=== PATIENT | male | born 1985 | race Caucasian/White ===

== ENCOUNTER 2022-03-06 11:12 | Emergency (ER) | payer MEDICAID, SELFPAY ==
[2022-03-06 11:21] VITALS: BP 130/85; PULSE 74; RESP 16; TEMP 37; O2SAT 100; BMI 37.5
--- NOTE | 2022-03-06 11:23 | XR_ITS ---
PROCEDURE INFORMATION: Exam: XR Left Wrist Exam date and time: 03/06/2022 11:38 AM Age: 36 years old Clinical indication: Pain; Wrist; Left; Additional info: Pain in the wrist TECHNIQUE: Imaging protocol: XR Left wrist. Views: 3 or more views. COMPARISON: No relevant prior studies available. FINDINGS: Bones/joints: Distal radial ulnar joint is normal. Carpus without fracture and normal anatomic configuration. Metacarpals and visualized phalanges without fracture or dislocation. No periarticular erosive changes and/or soft tissue calcifications. Soft tissues: See Bones/joints finding. IMPRESSION: No acute process.
--- NOTE | 2022-03-06 11:27 | XR_ITS ---
PROCEDURE INFORMATION: Exam: XR Left Hand Exam date and time: 03/06/2022 11:38 AM Age: 36 years old Clinical indication: Pain; Lower or forearm and hand and shoulder; Left; Additional info: Pain/ no injury TECHNIQUE: Imaging protocol: XR Left hand. Views: 3 or more views. COMPARISON: No relevant prior studies available. FINDINGS: Bones/joints: osseous structures of the hand are without an acute process. Distal radioulnar joint and radiocarpal joints grossly normal. Carpus without fracture. Metacarpals and phalangeal without fracture or dislocation. No erosive changes or periarticular calcifications. Correlate regarding tenderness about the scaphoid. If tender consider additional view. No history of trauma however. Soft tissues: Normal. IMPRESSION: Correlate regarding tenderness about the scaphoid. If tender consider additional view. No history of trauma however.
--- NOTE | 2022-03-06 11:27 | XR_ITS ---
PROCEDURE INFORMATION: Exam: XR Left Forearm Exam date and time: 03/06/2022 11:38 AM Age: 36 years old Clinical indication: Pain; Lower or forearm; Left; Additional info: Pain/ no injury TECHNIQUE: Imaging protocol: XR Left forearm. Views: 2 views. COMPARISON: No relevant prior studies available. FINDINGS: Bones/joints: The osseous structures of the forearm are unremarkable. The distal radius and the distal ulna are unremarkable. Visualized portions of the carpus normal. The distal radial ulnar joint normal. Visualized portions of the elbow normal. Soft tissues: Normal. IMPRESSION: Normal forearm. No fracture. No foreign body.
--- NOTE | 2022-03-06 11:27 | XR_ITS ---
PROCEDURE INFORMATION: Exam: XR Left Shoulder Exam date and time: 03/06/2022 11:28 AM Age: 36 years old Clinical indication: Pain; Lower or forearm and hand and shoulder; Left; Additional info: Pain/ no injury TECHNIQUE: Imaging protocol: XR Left shoulder. Views: 2 or more views. COMPARISON: No relevant prior studies available. FINDINGS: Bones/joints: Osseous structures of the shoulder are grossly normal. Acromioclavicular joint is without dislocation or fracture. Subacromial space height is normal. Adjacent ribs are normal. Glenohumeral joint, clavicle, acromion, and coracoid process appear grossly normal. Soft tissues: Normal. IMPRESSION: Normal shoulder.
--- NOTE | 2022-03-06 12:19 | HMH.EDUTC ---
[facility] [place] Clinical Impression: Radicular pain in left arm Disposition: Home, Self-Care Condition on Discharge: Good Instructions: DI for Cervical Radiculopathy, DI for Arm Pain Additional Instructions: Rest the extremity, Elevate the extremity as tolerated while you are resting. Take the ibuprofen for pain. finish the steroids that were presribed at [place]. Don't take the ibuprofen and the naproxen together. Follow up with Dr. Serrano (orthopedics). I put in a referral but you need to call his office and schedule an appointment. Follow up with your regular doctor. GO TO THE ER FOR ANY WORSENING SYMPTOMS Prescriptions: Ibuprofen [Ibuprofen 800mg Tablet] 800 mg PO Q8HP PRN #30 tab PRN Reason: Moderate Pain Transmission Status: Pending to [id number] Referrals: Bridget Galindo MD [Primary Care Provider] - Richie Serrano MD [Staff Physician] - Forms: Work/School Release Time of Disposition: 13:12 Medical Decision Making - Medical Records Medical records reviewed: No: I reviewed the patient's medical records. - Ricardo Inquiry Pt receiving controlled substance: No Vital Signs: 03/06/22 11:21 Temperature 98.6 F Temperature Source Oral Pulse Rate [Right] 74 Respiratory Rate 16 Blood Pressure [Right Arm] 130/85 Blood Pressure Mean [Right Arm] 100 Blood Pressure Source [Right Arm] Automatic Cuff Blood Pressure Position [Right Arm] Sitting 02 Sat by Pulse Oximetry 100 Oxygen Delivery Method Room Air [facility] [place] - General Stated complaint: AO lt wrist pain 03/04 Time Seen by Provider: 03/06/22 11:45 Mode of Arrival: Ambulatory Source of Information: Patient Limitations: No Limitations Description of Symptoms (Recalled from Triage Doc. by RN): pt c/o pain in his left wrist that goes up into his forearm and sometimes into his shoulder. Advises his pinky and ring finger will sometimes tingle and go numb. Pt advises he uses that hand/arm repeatedly at work and it started bothering him on Monday afternoon - History of Present Illness Provider Complaint: He states that for the past 4 days he has had right shoulder, arm, elbow, wrist and hand pain. He denies any known injury, but his symptoms did start after he had to use his right hand and arm a lot to fix something. - Related Data Previous Rx's Medication Instructions Recorded Ibuprofen [Ibuprofen 800mg 800 mg PO Q8HP PRN #30 tab 03/06/22 Tablet] Allergies Allergy/AdvReac Type Severity Reaction Status Date / Time No Known Allergies Allergy Verified 11/09/20 12:58 [facility] History - Hepatitis A Screen Attestation statement:: This patient has been screened for Hepatitis A risk factors. I have reviewed the patient's past medical history: Yes ROS Obtained: Yes All systems reviewed & no additional complaints - Constitutional Constitutional: Denies chills, Denies fever(s) - Eyes Eyes: Denies eye discharge - ENT Ears, Nose, Mouth, and Throat: Denies sore throat - Musculoskeletal Musculoskeletal: Reports as per HPI - Integumentary/Breasts Skin/Breast: Denies rash - Neurologic Neurologic: Reports tingling/numbness/burning sensations Physical Exam - General General appearance: alert, in no apparent distress - Head Head exam: atraumatic, normocephalic, normal inspection - Eye Eye exam: Present: normal appearance, PERRL, EOMI - ENT ENT exam: Present: normal exam, normal oropharynx, mucous membranes moist, TM's normal bilaterally, normal external ear exam - Neck Neck exam: Present: normal inspection, full ROM, trachea midline. Absent: meningismus, lymphadenopathy - Chest Chest inspection: Present: normal inspection, symmetric chest wall rise. Absent: tenderness - Respiratory Respiratory exam: Present: normal lung sounds bilaterally. Absent: respiratory distress - Cardiovascular Cardiovascular exam: Present: regular rate, normal rhythm. Absent: JVD - Abdomi
[2022-03-06 13:18] VITALS: BP 130/85; PULSE 74; RESP 16; TEMP 37
== END 2022-03-06 13:18 | disposition home or self-care (01) ==
LOC: ER 11:23 → UTC 11:24
PROVIDERS: Emergency Provider Nurse Practitioner Family; PCP Family Medicine
DX: M54.12 Radiculopathy, cervical region (principal); M25.512 Pain in left shoulder; M25.511 Pain in right shoulder; M79.632 Pain in left forearm; M79.631 Pain in right forearm; M25.532 Pain in left wrist; M25.531 Pain in right wrist; R20.2 Paresthesia of skin
CPT/HCPCS: 73030; 73090; 73110; 73130; 99285

== ENCOUNTER → 2022-03-22 13:05 | Outpatient (CLI) | payer MEDICAID, SELFPAY ==
--- NOTE | 2022-03-22 13:05 | MR_ITS ---
FINAL REPORT CLINICAL HISTORY: left shoulder pain. left side upper extremity weakness. pain, numbness, and tingling down left arm x3wks. no injury or trauma. headache. FINDINGS: Multi planar MR imaging of the left shoulder was performed. The supraspinatus tendon appears intact. There is no abnormal fluid in the subacromial/subdeltoid bursa. There is irregularity of the anterior labrum concerning for a chronic anterior labral tear. The posterior labrum is intact. The biceps tendon appears intact. The acromioclavicular joint appears intact. IMPRESSION: Irregularity of the anterior labrum concerning for chronic anterior labral tear. Reviewed, Interpreted and Dictated by Fausto Vasques MD Transcribed by Dejuan Prado Authenticated by Fausto Vasques MD on 03/22/2022 03:16:21 PM [facility]
--- NOTE | 2022-03-22 13:05 | MR_ITS ---
FINAL REPORT CLINICAL HISTORY: left side upper extremity weakness. pain, numbness, and tingling down left arm x3wks. no injury or trauma. headache. FINDINGS: Multi planar MR imaging was obtained of the cervical spine. There is abnormal decreased signal throughout the cervical discs. The vertebrae are of normal height. There is no malalignment. The cervical cord demonstrates normal signal and configuration. C2-C3: There is no evidence of significant disc bulge or protrusion. There is no significant facet hypertrophy. C3-C4: There is no evidence of significant disc bulge or protrusion. There is no significant facet hypertrophy. C4-C5: There is no evidence of significant disc bulge or protrusion. There is no significant facet hypertrophy. C5-C6: There is no evidence of significant disc bulge or protrusion. There is no significant facet hypertrophy. C6-C7: There is a left posterolateral disc protrusion with moderate compromise on the left neural foramen. C7-T1: There is no evidence of significant disc bulge or protrusion. There is no significant facet hypertrophy. IMPRESSION: Left posterolateral disc protrusion at C6-7 with moderate compromise on the left neural foramen. Reviewed, Interpreted and Dictated by Fausto Vasques MD Transcribed by Dejuan Prado Authenticated by Fausto Vasques MD on 03/22/2022 03:16:[address] [facility]
== END ==
PROVIDERS: Visit Provider Orthopaedic Surgery
DX: M54.2 Cervicalgia (principal); M25.512 Pain in left shoulder; M79.602 Pain in left arm; R20.0 Anesthesia of skin; R20.2 Paresthesia of skin
CPT/HCPCS: 72141; 73221; 76376

== ENCOUNTER 2022-03-28 08:30 | Outpatient (RCR) | payer MEDICAID, SELFPAY ==
--- NOTE | 2022-03-22 11:06 | HMH.PTOPEV ---
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 Pt reports immediate onset left hand weakness, wrist pain, forearm pain, and shoulder pain. Pt reports intermittent episodes of left shoulder ' getting stuck', limitations in AROM, and referred pain down the arm, no left sided neck pain reported. Chief Complaint Pain,Catches/Locks,Paresthesia ,Weakness Symptom Type Ache,Sharp,Dull,Stabbing, Numbness,Tingling Symptoms Relieved By Rest/Positioning Symptoms Aggravated By Physical Activity,Lifting Prior Functional Limitations None Current Functional Limitations Reaching,Lifting,Housework Symptom Description Constant but Variable Level of pain today (0-10) 2 Pain scale - at its best (0-10) 1 Pain scale - at its worst (0-10) 8 Shoulder/Elbow Eval Shoulder Objective Measurements Palpation Tenderness tenderness over the bicipital tendon left shoulder exam standard Shoulder Palpation Findings Tenderness Shoulder Palpation Overall Comment 3/4 ant. delt, mid delt., 2/4 post jt line Shoulder ROM Left Shoulder Abduction Active Range of 0-90 Motion (degrees) Shoulder Abduction Passive Range of 0-150 Motion (degrees) Shoulder Flexion Active Range of Motion 0-100 (degrees) Query Text: Shoulder Flexion Passive Range of Motion 0-150 (degrees) Shoulder External Rotation Passive Range 0-85 of Motion (degrees) Shoulder Internal Rotation Passive Range 0-90 of Motion (degrees) Shoulder MMT Shoulder Abduction Strength Grade 4 Good Shoulder Flexion Strength Grade 4 Good Shoulder External Rotation Strength 4 Good Grade Shoulder Internal Rotation Strength 5 Normal Grade Shoulder Special Tests Shoulder Drop Arm Test Negative Left Shoulder Cross-Over Impingement Test Positive Left Acromioclavicular Joint Compression Test Negative Left Shoulder Ant
== END 2022-03-28 08:35 | disposition home or self-care (01) ==
LOC: PT 08:30
PROVIDERS: Visit Provider Orthopaedic Surgery
DX: M25.512 Pain in left shoulder (principal); M79.642 Pain in left hand
CPT/HCPCS: 97010; 97014; 97110; 97163; G0283

== ENCOUNTER 2022-07-08 08:00 | Outpatient (RCR) | payer MEDICAID, SELFPAY ==
--- NOTE | 2022-07-05 11:30 | HMH.PTOPEV ---
PT Outpatient Evaluation Rehab PT Outpatient Evaluation Start: 07/05/22 11:13 Freq: Status: Active Protocol: Document 07/05/22 11:19 SONAL (Rec: 07/05/22 11:29 SONAL [id number]) Electronically Signed By Eric Henson, PT 07/05/22 11:19 Outpatient Therapy Subjective History Subjective History Pt reports injury to neck in late 2019, stuck head on low ceiling, felt 'squish' and immediate neck pain, reports chronic GILL's since. Pt reports insidious left shoulder pain for ~3 yrs. 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 Pt reports improved s/s w/cortizone injection 6 days ago. Pt reports improved neck pain over the last ~6 months. Chief Complaint Pain,Stiff,Clicks,Catches/ Locks,Paresthesia Symptom Type Ache,Sharp,Dull,Numbness, Tingling Symptoms Relieved By Rest/Positioning,Prescription Meds Symptoms Aggravated By Physical Activity,Lifting Prior Functional Limitations Reaching,Lifting,Housework Current Functional Limitations Reaching,Lifting,Housework Symptom Description Constant but Variable Level of pain today (0-10) 4 Pain scale - at its best (0-10) 2 Pain scale - at its worst (0-10) 8 Cervical Eval Palpation Cervical Muscles L CT Junction,L Upper Trapezius Cervical/Thoracic Palpation Findings Tenderness,Trigger Point Posture Head/C-Spine Posture Sitting Position Neutral Position Head/C-Spine Posture Standing Position Neutral Position Flexibility Deficits Upper Trapezius Muscle Length (L) Moderate Tightness Scalene Group Muscle Length (L) Moderate Tightness Passive Joint Mobility Cervical PIVM WNL: R OA L OA R AA L AA R C2/3 L C2/3 R C3/4 L C3/4 R C4/5 L C4/5 R C5/6 L C5/6 R C6/7 L C6/7
== END 2022-07-08 09:00 | disposition home or self-care (01) ==
LOC: PT 08:00
PROVIDERS: PCP Orthopaedic Surgery; Visit Provider Orthopaedic Surgery
DX: M54.2 Cervicalgia (principal); M50.10 Cervical disc disorder with radiculopathy, unspecified cervical region; M25.512 Pain in left shoulder
CPT/HCPCS: 97163

== ENCOUNTER 2022-09-27 09:00 | Outpatient (RCR) | payer MEDICAID, SELFPAY | END 2022-09-27 09:05 | disposition home or self-care (01) | LOC: PT 09:00 | PROVIDERS: PCP Orthopaedic Surgery; Visit Provider Orthopaedic Surgery | DX: M50.223 Other cervical disc displacement at C6-C7 level (principal) | CPT/HCPCS: 97010; 97012; 97014; 97110; 97163; G0283 ==

== ENCOUNTER 2024-06-07 11:26 | Outpatient (CLI) | payer MEDICAID, SELFPAY ==
[2024-06-07 18:28] LABS: Basophils # 0.1 K/mm3 (0-0.2); Eosinophils # 0.4 K/mm3 (0.0-0.4); Eosinophils % 4.6 % (0.1-12.0); Hematocrit 47.6 % (42.0-52.0); Hemoglobin 15.8 g/dL (14.1-18.0); Lymphocytes # 2.5 K/mm3 (0.7-4.5); Lymphocytes % 32.4 % (10-50); Mean Corpuscular HGB Conc 33.3 g/dL (31.8-35.4); Mean Corpuscular Hemoglobin 31.5 pg (27.0-31.2); Mean Corpuscular Volume 94.5 fl (80-94); Mean Platelet Volume 9.7 fl (7.4-10.4); Monocytes # 0.5 K/mm3 (0.1-1.0); Neutrophils # 4.3 K/mm3 (1.8-7.8); Platelet Count 251 K/mm3 (142-424); Red Blood Count 5.04 M/mm3 (4.60-6.20); Red Cell Distribution Width 13.5 % (11.5-17.5); White Blood Count 7.8 K/mm3 (4.8-10.8)
[2024-06-07 19:15] LABS: Alanine Aminotransferase 58 U/L (12-78); Albumin Level 4.4 g/dl (3.5-5.0); Alkaline Phosphatase 96 U/L (38-126); Anion Gap 9.5 mEq/L (5-15); Aspartate Amino Transferase 36 U/L (17-59); Bilirubin,Total 0.5 mg/dl (0.2-1.3); Blood Urea Nitrogen 15 mg/dl (9-20); Calcium 9.5 mg/dl (8.4-10.2); Carbon Dioxide 27 mmol/L (22.0-30.0); Chloride 109 mmol/L (98-107); Chol/HDL Ratio 5.2 (1-3.5); Cholesterol 214 mg/dl (140-200); Estimated Glomerular Filt Rate 95 ml/min (>60); GFR (African American) 115 ML/MIN (>60); Globulin 2.2 g/dL (1.3-3.2); Glucose 99 mg/dl (74-100); HDL Cholesterol 41 mg/dl (40-60); Potassium 4.5 mmoL/L (3.5-5.1); Sodium 141 mmol/L (136-145); Total Protein,Serum 6.6 g/dl (6.3-8.2); Triglycerides 185 mg/dl (30-150); VLDL Cholesterol 37 mg/dL (0-40)
[2024-06-07 19:27] LABS: Hemoglobin A1C 5.4 % (4.0-6.0)
[2024-06-07 19:33] LABS: 25-OH Vitamin D, Total 29.2 ng/mL (30-100)
[2024-06-07 19:43] LABS: Thyroid Stimulating Hormone 1.71 uIU/mL (0.465-4.68)
[2024-06-07 20:35] LABS: Direct LDL Cholesterol 117.54 mg/dL (100-129)
[2024-06-09 09:08] LABS: Testosterone,Total 244 ng/dL (264-916)
== END 2024-06-07 23:59 | disposition home or self-care (01) ==
LOC: LAB.DROPOF 06-10 11:27
PROVIDERS: PCP Nurse Practitioner Family; Visit Provider Nurse Practitioner Family
DX: M50.10 Cervical disc disorder with radiculopathy, unspecified cervical region (principal); E55.9 Vitamin D deficiency, unspecified; E29.1 Testicular hypofunction; N52.9 Male erectile dysfunction, unspecified; R53.83 Other fatigue
CPT/HCPCS: 80050; 80053; 80061; 82306; 83036; 84403; 84443; 85025

== ENCOUNTER 2024-06-14 11:40 | Outpatient (CLI) | payer MEDICAID, SELFPAY ==
[2024-06-16 07:52] LABS: Testosterone,Total 281 ng/dL (264-916)
== END 2024-06-14 23:59 | disposition home or self-care (01) ==
LOC: LAB.DROPOF 06-17 10:31
PROVIDERS: PCP Nurse Practitioner Family; Visit Provider Nurse Practitioner Family
DX: N52.9 Male erectile dysfunction, unspecified (principal)
CPT/HCPCS: 84403

== ENCOUNTER 2024-09-13 10:59 | Outpatient (CLI) | payer MEDICAID, SELFPAY ==
[2024-09-23 10:08] LABS: Testosterone, Total, LC/MS 298 ng/dL (.)
== END 2024-09-13 23:59 | disposition home or self-care (01) ==
LOC: LAB.DROPOF 09-16 11:00
PROVIDERS: PCP Nurse Practitioner Family; Visit Provider Nurse Practitioner Family
DX: E34.9 Endocrine disorder, unspecified (principal)
CPT/HCPCS: 84403

== ENCOUNTER 2025-08-22 10:15 | Outpatient (CLI) | payer MEDICAID, SELFPAY ==
[2025-08-22 16:00] LABS: Hematocrit 48.4 % (42.0-52.0); Hemoglobin 16.2 g/dL (14.1-18.0); Immature Granulocytes % 0.4 %; Mean Corpuscular HGB Conc 33.5 g/dL (31.8-35.4); Mean Corpuscular Hemoglobin 30.7 pg (27.0-31.2); Mean Corpuscular Volume 91.7 fl (80-94); Nucleated Red Blood Cells % 0 %; Platelet Count 264 K/mm3 (142-424); Red Blood Count 5.28 M/mm3 (4.60-6.20); Red Cell Distribution Width-SD 40.3 fL; White Blood Count 6.9 K/mm3 (4.8-10.8)
[2025-08-22 16:40] LABS: Alanine Aminotransferase 39 U/L (12-78); Albumin Level 4.0 g/dl (3.5-5.0); Albumin/Globulin Ratio 2.0 (1.1-1.8); Alkaline Phosphatase 86 U/L (38-126); Anion Gap 11.2 mEq/L (5-15); Aspartate Amino Transferase 30 U/L (17-59); Bilirubin,Total 0.3 mg/dl (0.2-1.3); Blood Urea Nitrogen 13 mg/dl (9-20); Calcium 8.9 mg/dl (8.4-10.2); Carbon Dioxide 27 mmol/L (22.0-30.0); Chloride 104 mmol/L (98-107); Cholesterol 194 mg/dl (140-200); Creatinine,Serum 0.80 mg/dl (0.66-1.25); Estimated Glomerular Filt Rate 108 ml/min (>60); GFR (African American) 131 ML/MIN (>60); Globulin 2.0 g/dL (1.3-3.2); Glucose 128 mg/dl (74-100); HDL Cholesterol 34 mg/dl (40-60); Potassium 4.2 mmoL/L (3.5-5.1); Sodium 138 mmol/L (136-145); Total Protein,Serum 6.0 g/dl (6.3-8.2); Triglycerides 166 mg/dl (30-150)
[2025-08-22 17:10] LABS: Thyroid Stimulating Hormone 2.49 uIU/mL (0.465-4.68)
--- OUTSIDE RECORDS SUMMARY | 2025-08-25 10:46 | XMS_ITS | Clinical Summary ---
Author Organization [facility] Address [address] [place] [address] Care Team Providers Care Process Expert Name Role Phone Provider, No Known Primary Care Provider Unavail able Allergies No known active allergies Medications esomeprazole (nexIUM) 40 MG capsule Take 1 capsule by mouth Daily. 03/14/2022 Active cetirizine (zyrTEC) 10 MG tablet Take 1 tablet by mouth Daily. 03/14/2022 Active fluticasone (FLONASE) 50 MCG/ACT nasal spray 2 sprays by Each Nare route Daily. 03/14/2022 Active Active Problems Problem Noted Date Diagnosed Date Mood disorder 08/03/2021 Overview (05/19/2022): Anger issues/ agitated/ anxious Increase wellbutrin. GERD (gastroesophageal reflux disease) 4 Overview (05/19/2022): Stable on ppi Family History Medical History Relation Name Comments Diabetes Father Heart disease Father Breast cancer Mother Relation Name Status Comments Father Mother Social History Tobacco Use Types Packs/Day Years Used Date Smoking Tobacco: Every Day Cigarettes Smokeless Tobacco: Never Alcohol Use Standard Drinks/Week Comments Yes 0 (1 standard drink = 0.6 oz pur e alcohol) Abuse Screen Answer Date Recorded Unsafe at Home or Work/School Not on file Feels Threatened by Someone? Not on file Does Anyone Keep You from Co ntacting Others or Doint Things Outside the Home? Not on file 09/08/2023 Physical Sign of Abuse Present Not on file 1 Housing Stability Answer Date Recorded Current Living Arrangements Not on file 08/27 Potentially Unsafe Housing Conditions Not on irina e 09/08/2023 Family and Community Support Answer Deangelo e Recorded Help with Day-to-Day Activities Not on file 09/08/2023 Lonely or Isolated Not on file 09/08/2023 Employment Answer Date Recorded Do you want help finding or keeping work or a rosario b? Not on file 09/08/2023 Disabilities Answer Date Recorded Concentrating, Remembering, or Making Decisions Difficulty Not on file 09/08/2023 Doing Errands Independently Difficulty Not on fi le 09/08/2023 Education Answer Date Recorded Help with school or training? Not on file Preferred Language Not on file 09/08/2023 Sex and Gender Information Value Date Recorded Sex Assigned at Not on file Legal Sex Male 1:16 PM EDT Gender Identity Not on file Sexual Orientation Not on file Last Filed Vital Signs Vital Sign Reading Time Taken Comments Blood Pressure 120/82 05/19/2022 12:18 PM EDT Pulse - - Temperature 36.5 C (97.7 F) 05/19/2022 12:18 PM EDT Respiratory Rate - - Oxygen Saturation - - Inhaled Oxygen Concentration - - Weight 130 kg (286 lb 12.8 oz) 05/19/2022 12:18 PM EDT Height 182.9 cm (6') 05/19/2022 12:18 PM EDT Body Mass Index 38.9 05/19/2022 12:18 PM EDT Plan of Treatment Health Maintenance Due Date Last Done Comments TDAP/TD VACCINES (1 - Tdap) 2005 ANNUAL PHYSICAL 05/19/2022 HEPATITIS C SCREENING 05/19/2022 INFLUENZA VACCINE 06/27/2025 09/05/2013 Pneumococcal Vaccine 0-49 Aged Out No longer eligible based on patient's age to complete this topic Insurance [employer] Care Teams Process Expert Relationship Specialty Start Date End Date Provider, No Known [facility] [place] [address] PCP - General 04/13/22
--- OUTSIDE RECORDS SUMMARY | 2025-08-25 10:46 | XMS_ITS | Clinical Summary ---
Author Organization [facility] Address [address] [place] [address] Phone Care Team Providers Care Well Drill Operator Rotary Drill Name Role Phone Brian Romo MD Primary Care Provider [phone] Allergies No known active allergies Medications promethazine-dex tromethorphan (PROMETHAZINE-DM ) 6.25-15 mg/5 mL Oral SyrupIndications :Upper respiratory tract infection, unspecified type,Congestion of upper respiratory tract Take 5 mL by mouth every 6 hours as needed. 180 mL 2 Active Additional Information Patient not taking.Reason: Pt electing to not take the medication, Reported on 10/16/2023 buPROPion (WELLBUTRIN XL) 300 mg Oral Tablet Sustained Release 24 hrIndications:Mo od disorder TAKE 1 TABLET BY MOUTH ONCE EVERY MORNING 30 Tablet 5 3 Active ketoconazole (NIZORAL) 2 % Top CreamIndications :Rash Apply topically daily. to right wrist area. 30 g 3 Active mupirocin (BACTROBAN) 2 % Top OintmentIndicati ons:Spider bite wound, undetermined intent, initial encounter Apply topically 3 times daily. 15 g 3 Active naproxen (NAPROSYN) 500 mg Oral TabletIndication s:Injury of right foot, initial encounter Take 1 Tablet by mouth 2 times daily (with meals). 60 Tablet 2 3 Active cetirizine (ZYRTEC) 10 mg Oral TabletIndication s:Allergic rhinitis due to dust mite TAKE ONE TABLET BY MOUTH ONCE DAILY 30 Tablet 5 3 Active levocetirizine (XYZAL) 5 mg Oral TabletIndication s:Acute bacterial sinusitis,Season al allergic rhinitis due to pollen Take 1 Tablet by mouth every evening. 30 Tablet 3 Active esomeprazole (NEXIUM) 40 mg Oral Capsule, Delayed Release(E.C.)Ind ications:Gastroe sophageal reflux disease without esophagitis TAKE 1 CAPSULE BY MOUTH ONCE DAILY *MUST MAKE APPOINTMENT* 30 Capsule 3 Active fluticasone propionate (FLONASE) 50 mcg/actuation Nasl Atkins, SuspensionIndica tions:Allergic rhinitis due to dust mite SPRAY 2 SPRAYS INTO EACH NOSTRIL EVERY DAY 16 mL 4 Active Active Problems Problem Noted Date Diagnosed Date Mood disorder 08/03/2021 Overview (10/12/2021): Anger issues/ agitated/ anxious Increase wellbutrin. Frequent headaches 10/07/2020 Assessment & Plan (10/07/2020 8:57 AM EST): Appears to be originating from neck. Recommend flexeril prn Heat/ice Consider chiropractor care. Get updated eye exam. Allergic rhinitis due to dust mite 06/06/2018 Overview (10/07/2020): Stable Continue zyrtec with prn use of sudafed Obesity, Class II, BMI 35-39.9 02/28/2018 Overview (10/07/2020): Diet/exercise. Generalized osteoarthritis of multiple sites 02/2018 Overview (10/07/2020): Would benefit from weight loss Continue voltaren BID Heat/ice, stretching. GERD (gastroesophageal reflux disease) 4 Overview (10/07/2020): Stable on ppi Resolved Problems Problem Noted Date Diagnosed Date Resolved Date Tinea pedis of both feet 06/06/2018 Abdominal pain, other specified site 09/25/2013 02/10/2017 S/P appendectomy 09/10/2013 01/10/2019 MRSA (methicillin resistant staph aureus) culture positive 11/06/2012 02/10/2017 Abscess and cellulitis 11/06/201202/10 Immunizations Immunization Administration Dates Next Due Influenza Vaccine, Unspecified Formulation 09/05 Pfizer SARS-CoV-2 Vaccine 12+ Yrs (Purple Cap) 0 04/07/2021,03/16/2021 Surgical History Surgery Date Site/Laterality Comments TONSILLECTOMY LAPAROSCOPIC APPENDECTOMY 09/03/2013 N/A LAPAROSCOPIC APPENDECTOMY ; Surgeon: Carlin Cabrera MD; Location: [facility]; Service: General Medical History Medical History Date Comments Seasonal allergies MRSA infection 2011 right leg GERD (gastroesophageal reflux disease) Generalized osteoarthritis o f multiple sites 02/28/2018 Would benefit from weight lo ss Continue voltaren BID Heat/ice, stretching. Family History Medical History Relation Name Comments Arthritis Father sigifredo mcghee Diabetes Father sigifredo mcghee Heart Disease Father sigifredo mcghee High Cholesterol Father sigifredo mcghee Arthritis Mother ameena mcghee Cancer Mother ameena mcgehe Depression Mother ameena mcghee Diabetes Mother ameena mcghee Learning Disabilities Mother ameena mcghee Dys lexia Relation Name Status Comments Brother Alive Father sigifredo mcghee Alive Mother ameena mcghee Social History Tobacco Use Types Packs/Day Years Used Date Smoking Tobacco: Every Day Cigarettes 1 21.7 Started: 11/27/2003 Cigars Started: 11/27 Smokeless Tobacco: Never Tobacco Cessation:Ready to Q uit: Not Asked; Counseling Given: Not Answered Alcohol Use Standard Drinks/Week Comments Yes 0 (1 standard drink = 0.6 oz pur e alcohol) rarely PHQ-2 Answer Date Recorded PHQ-2 Total Score 0 07/20/2020 Sexually Active Control Partners Comments Yes Condom, Rhythm Female Sex and Gender Information Value Date Recorded Sex Assigned at Not on file Legal Sex Male 11:46 PM EDT Gender Identity Not on file Sexual Orientation Not on file Last Filed Vital Signs Vital Sign Reading Time Taken Comments Blood Pressure 132/80 05/02/2023 11:02 AM EDT Pulse 79 05/02/2023 11:02 AM EDT Temperature 36.5 C (97.7 F) 05/02/2023 11:02 AM EDT Respiratory Rate 16 05/02/2023 11:0 2 AM EDT Oxygen Saturation 95% 05/02/2023 11: 02 AM EDT Inhaled Oxygen Concentration - - Weight 139.4 kg (307 lb 6.4 oz) 023 11:02 AM EDT Height 185.4 cm (6' 1 ) 05/02/2023 11:0 2 AM EDT Body Mass Index 40.56 05/02/2023 11:02 AM EDT Plan of Treatment Health Maintenance Due Date Last Done Comments Hepatitis B Vaccine (1 of 3 - 19+ 3-dose series) 2005 Pneumococcal Vaccine 0-49 (1 of 2 - PCV) 2005 DTaP/TDaP/Td (1 - Tdap) 12/20/2006 12/19/2006 Annual Wellness Exam 10/12/2022 10/12/2021, 02/01/20 19 COVID-19 Vaccine (3 - season) 2025 04/07/2021, 03/16/2021 Influenza Vaccine (#1) 2025 7 (Declined), 09/05/2013, 10/16/2010, Additional history exists Meningococcal B Vaccine Aged Out No l onger eligible based on patient's age to complete this topic Goals Goal Patient Goal Type Associated Problems Recent Progress Patient-Stated? Author Maintain a healthy diet, exercise regularly and maintain an ideal body weight General No Janeth Dawson CCMA Stay Tobacco Free Lifestyle No Janeth Dawson CCMA Insurance [facility] [place] [place] [address] [place] [address] [employer] [address] [place] [address] [facility] Advance Directives For more information, please contact: [phone] * Full Code (Latest Code Status on File) Date Activated Date Inactivated Comments 09/24/2013 11:19 AM 09/28/2013 7:19 PM * Full Code Date Activated Date Inactivated Comments 09/03/2013 8:42 PM 09/05/2013 6:20 PM Care Teams Well Drill Operator Rotary Drill Relationship Specialty Start Date End Date Brian Romo MD [address] [place] [address] [place] [address] PCP - General Family Medicine 07/21/20
--- OUTSIDE RECORDS SUMMARY | 2025-08-25 10:46 | XMS_ITS | Encounter Summary ---
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); Abscess and cellulitis Social History Tobacco Use Types Packs/Day Years Used Date Smoking Tobacco: Every Day Cigarettes 0.5 5 Smokeless Tobacco: Never Alcohol Use Standard Drinks/Week Comments Yes 0 (1 standard drink = 0.6 oz pur e alcohol) rarely Sex and Gender Information Value Date Recorded Sex Assigned at Not on file Legal Sex Male 11:46 PM EDT Gender Identity Not on file Sexual Orientation Not on file documented as of this encounter Plan of Treatment Not on file documented as of this encounter Results * CT PELVIS W CONTRAST (10/02/2013 2:31 PM EST) Anatomical Region Laterality Modality Pelvis Computed Tomogra phy 10/02/2013 Impressions 10/02/2013 3:40 PM EST IMPRESSION: Complete resolution of abscess in the lower pelvis between the bladder and sigmoid colon since prior study of 09/23/2013 Narrative 10/02/2013 3:[address] scan of the pelvis with contrast date 10/02/2013 time 1427 graph history followup pelvic abscess Technical factors 75 mL of Isovue-370 was given introducer. Oral contrast was given. Spiral scanning is performed through the pelvis with coronal and sagittal reconstructions. Correlate with prior study 09/23/2013 FINDINGS: There is a pigtail catheter anterior the sigmoid colon and posterior bladder in the pelvis. There is complete resolution of previous abscess in this region. No residual focal fluid collections are identified around the catheter tip. The sigmoid colon is unremarkable and the bladder is unremarkable. There is no obvious adenopathy in this region. Procedure Note Leonides Butts III, MD - 10/02/2013 CT scan of the pelvis with contrast date 10/02/2013 time 1427 graph historyfollowup pelvic abscess Technical factors 75 mL of Isovue-370 was given introducer. Oral contrastwas given. Spiral scanning is performed through the pelvis with coronal and sagittalreconstructions. Correlate with prior study 09/23/2013 FINDINGS: There is a pigtail catheter anterior the sigmoid colon andposterior bladder in the pelvis. There is complete resolution of previous abscess in this region.No residual focal fluid collections are identified around the catheter tip. The sigmoidcolon is unremarkable and the bladder is unremarkable. There is no obvious adenopathy in thisregion. 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 Other thalassemia Abscess and cellulitis Cellulitis and abscess of unspecified site documented in this encounter Additional Health Concerns Infection Onset Date Last Indicated Resolved Time R/O COVID-19 09/24/2020 09/24/2020 10/24/2020 10:1 2 PM EST R/O COVID-19 07/11/2022 07/11/2022 07/12/2022 4:42 AM EDT documented as of this encounter Care Teams Airline Station Agent Relationship Specialty Start Date End Date Kane Hobbs MD PCP - General Family Medicine 11/06/12 11/26/14 Bridget Galindo MD [address] [place] [address] [place] [id number] PCP - General Family Medicine 11/27/14 10/07/19 Rubia Mantilla MD [address] [place] [address] [place] [id number] PCP - General Family Medicine 10/08/19 07/20/20 Brian Rmoo MD [address] [place] [address] [place] JIMENEZ [id number] PCP - General Family Medicine 07/21/20 documented as of this encounter
[2025-08-25 12:07] LABS: Testosterone,Total 334 ng/dL (264-916)
== END 2025-08-22 23:59 ==
LOC: LAB.DROPOF 08-25 10:37
PROVIDERS: PCP Nurse Practitioner Family; Visit Provider Nurse Practitioner Family
DX: E29.1 Testicular hypofunction (principal); F41.1 Generalized anxiety disorder
CPT/HCPCS: 80053; 80061; 84403; 84443; 85025